=== PATIENT | male | born 1995 | race Caucasian/White ===

== ENCOUNTER 2024-04-09 23:16 | Emergency (ER) | payer SELFPAY ==
[2024-04-09 23:17] VITALS: BP 108/63; PULSE 60; RESP 95; TEMP 36.8; O2SAT 95; BMI 23.7
--- NOTE | 2024-04-09 23:28 | CTR_ITS ---
PROCEDURE INFORMATION: Exam: CT Abdomen And Pelvis Without Contrast Exam date and time: 04/09/2024 11:31 PM Age: 28 years old Clinical indication: Abdominal pain; Localized; Right lower quadrant (rlq); Prior surgery; Surgery date: 6+ months; Surgery type: Hernia mesh; Patient HX: C/O rlq pain; Additional info: Rlq abd pain TECHNIQUE: Imaging protocol: Computed tomography of the abdomen and pelvis without contrast. Radiation optimization: All CT scans at this facility use at least one of these dose optimization techniques: automated exposure control; mA and/or kV adjustment per patient size (includes targeted exams where dose is matched to clinical indication); or iterative reconstruction. COMPARISON: No relevant prior studies available. RADIATION DOSE METRICS: Total DLP (mGy-cm): 529.78 FINDINGS: Limitations: The absence of intravenous contrast lessens the sensitivity of this study for solid organ abnormalities. Liver: There is no focal abnormality within the liver. Gallbladder and bile ducts: Gallbladder is nondistended but otherwise unremarkable. There is no common bile duct dilation. Pancreas: The pancreas is normal. Spleen: The spleen is normal. Adrenal glands: The adrenal glands are normal. Kidneys and ureters: There are multiple left renal collecting system calcifications. The right kidney is normal. There is no evidence of hydronephrosis. There is no stone along the course of either ureter. Stomach and bowel: There are findings of intestinal malrotation with the entirety of the colon being to the left of the midline. Stomach is distended with fluid and food debris. This could represent recently ingested meal. Please correlate with clinical history to exclude gastric obstruction. There is no evidence for intestinal obstruction. Appendix: A normal appendix is identified. Intraperitoneal space: There is no evidence of free intraperitoneal fluid. Vasculature: The aorta is normal. The aorta is normal. Lymph nodes: There is no evidence of lymphadenopathy. There is no evidence of lymphadenopathy. Urinary bladder: Unremarkable as visualized. Reproductive: Unremarkable as visualized. Bones/joints: Unremarkable. No acute fracture. Soft tissues: There are findings of mesh hernia repair left side of the abdomen. CT/CT abdomen pelvis wo con [id number] IMPRESSION: 1. Intestinal malrotation 2. Gastric distension of uncertain significance, possibly due to recently ingested meal 3. No evidence of appendicitis. 4. Left nephrolithiasis without evidence of ureteral calculi
--- NOTE | 2024-04-09 23:29 | W.ED.ABDPA2 ---
Documented by User: ELBA Pardo 04/10/24 00:57 HPI - Abdominal Pain General: Chief Complaint: Abdominal Pain Stated Complaint: ABD PAIN Time Seen by Provider: 04/09/24 23:20 History of Present Illness: 28-year-old male patient comes in today with right lower quadrant and right abdominal pain starting at about 6:00 this evening. Patient reports that he has felt sick to his stomach since then 2. Patient does have a history of renal stones and inguinal hernia repair. Patient has also had 2 back surgeries. Patient appears nontoxic. Patient appears in mild pain. Patient was brought in by EMS and had 0.5 mg of hydromorphone and route. Review of Systems General: Reports: 10 or more systems reviewed and unremarkable except in HPI and below GI: Reports: abdominal pain Physical Exam Const: COMMON NORMALS: alert HENMT: COMMON NORMALS: normocephalic HEAD & SCALP: normocephalic Neck/C-Spine: COMMON NORMALS: full ROM Resp: COMMON NORMALS: normal respiratory effort and clear to auscultation bilaterally AUSCULTATION: clear to auscultation bilaterally Cardio: COMMON NORMALS: regular rate RATE: regular rate GI: AUSCULTATION: Yes normoactive bowel sounds PALPATION: Yes Tenderness to palpation present (GI) Details: RLQ Back/Pelvis: COMMON NORMALS: thoracic and lumbar spine normal to inspection Extremity: COMMON NORMALS: full ROM Neuro: SENSORIUM/ORIENTATION: Yes alert Skin: COMMON NORMALS: turgor normal GENERAL SKIN EXAM: turgor normal Course Vital Signs: Vital signs: Vital Signs Temperature 98.2 F 04/09/24 23:17 Pulse Rate 56 L 04/10/24 01:32 Respiratory Rate 14 04/10/24 01:32 Blood Pressure 100/57 04/10/24 01:32 Pulse Oximetry 94 04/10/24 01:32 Oxygen Delivery Me thod Room Air 04/10/24 01:32 MDM - Abdominal Pain Medical Decision Making 28-year-old male patient comes in tonight with right lower quadrant abdominal pain. Patient reports pain started about 6:00 this evening. Patient has a history of hernia repair, renal calculi and back surgery. On exam abdomen soft with tenderness in the right mid to lower abdomen. Bowel sounds are present. Vital signs are normal. Differential diagnosis includes but not limited to appendicitis, gallbladder disease, constipation, bowel obstruction, pancreatitis, gastroenteritis, enteritis, diverticulitis. CBC CMP was unremarkable. We were awaiting CT report. Reviewed patient with Dr. Mckeon who graciously assumed care of patient at the end of my shift. Lab Data 04/09/24 23:50 04/09/24 23:50 Labs/Radiology: Radiology Impressions Abdomen/Pelvis CT 04/09/24 23:28 IMPRESSION: 1. Intestinal malrotation 2. Gastric distension of uncertain significance, possibly due to recently ingested meal 3. No evidence of appendicitis. 4. Left nephrolithiasis without evidence of ureteral calculi Laboratory Results WBC 7.04 10^3/uL (3.29-11.43) 04/09/24 23:50 RBC 4.36 10^6/uL (3.85-5.65) 04/09/24 23:50 Hgb 13.20 g/dL (11.27-16.99) 04/09/24 23:50 Hct 38.4 % (37-53) 04/09/24 23:50 MCV 88.1 fl (82-101) 04/09/24 23:50 MCH 30.3 pg (27-33) 04/09/24 23:50 MCHC 34.4 g/dL (30-55) 04/09/24 23:50 RDW 12.4 % (12.1-15.1) 04/09/24 23:50 Plt Count 221 10^3/cmm (157-399) 04/09/24 23:50 MPV 9.2 fL (7.4-10.4) 04/09/24 23:50 Neut % (Auto) 51.4 % 04/09/24 23:50 Lymph % (Auto) 35.7 % 04/09/24 23:50 Payne % (Auto) 9.5 % 04/09/24 23:50 Eos % (Auto) 2.4 % 04/09/24 23:50 Baso % (Auto) 0.9 % 04/09/24 23:50 Neut # (Auto) 3.62 10^3/uL (1.8-7.7) 04/09/24 23:50 Lymph # (Auto) 2.5 10^3/uL (0.8-4.8) 04/09/24 23:50 Payne # (Auto) 0.7 10^3/uL (0.2-0.9) 04/09/24 23:50 Eos # (Auto) 0.2 10^3/uL (0.0-0.8) 04/09/24 23:50 Baso # (Auto) 0.1 10^3/uL (0.0-0.1) 04/09/24 23:50 Nucleated RBC % (auto) 0 % 04/09/24 23:50 Nucleated RBCs # 0.0 /100WBC 04/09/24 23:50 Sodium 139 mmol/L (136-145) 04/09/24 23:50 Potassium 3.7 mmol/L (3.5-5.1) 04/09/24 23:50 Chloride 105 mmol/L (98-107) 04/09/24 23:50 Carbon Dioxide 28 mmol/L (22-29) 04/09/24 23:50 Anion Gap 9.7 (5-19) 04/09/24 23:50 BUN 21 mg/dL (6-20) H 04/09/24 23:50 Creatinine 1.1 mg/dL (0.7-1.2) 04/09/24 23:50 GFR Calculation 79.1 mL/min (90-130) L 04/09/24 23:50 Glucose 111 mg/dL (65-115) 04/09/24 23:50 Calculated Osmolality 292 mOsm/kg (285-295) 04/09/24 23:50 Calcium 8.8 mg/dL (8.5-10.5) 04/09/24 23:50 Total Bilirubin 0.3 mg/dL (0.15-1.2) 04/09/24 23:50 AST 14 U/L (0-40) 04/09/24 23:50 ALT 10 U/L (0-41) 04/09/24 23:50 Alkaline Phosphatase 73 U/L (40-130) 04/09/24 23:50 Total Protein 5.8 g/dL (6.6-8.7) L 04/09/24 23:50 Albumin 3.5 g/dL (3.5-5.2) 04/09/24 23:50 Globulin 2.3 g/dL (1.3-4.6) 04/09/24 23:50 Lipase 30 U/L (13-60) 04/09/24 23:50 XR interpretation done by ED provider, pending radiology final review Discharge Plan Discharge Patient Disposition: Home Clinical Impression: Gastric distention Condition: Stable Prescriptions: New Reglan 10 mg tablet 10 mg PO Q6H 7 Days Qty: 28 0RF magnesium citrate Solution 300 ml PO DAILY PRN (Reason: constipation) Qty: 296 0RF Discharge Orders: Discharge ED (Routine); Ordered 04/10/24 Ordered By: Yang Mckeon Patient Instructions: Opioid Safety, Pain Management Activity Restrictions/Additional Instructions: Your stomach was quite distended on the imaging you had performed here. However, there is no obstruction. Medication is to increase your stomach motility, and relieve any constipation causing the distention. Medication should be taken near a bathroom. Return for fever greater than 100, vomiting liquids or medications, worsening pain despite treatment, or any other concerning symptoms. See your doctor next week. Coding Level of Care Code ED International Tax Manager for [employer]g [employer] Documented by User: Yang Mckeon DO 04/10/24 02:18 HPI - Abdominal Pain General: Chief Complaint: Abdominal Pain Stated Complaint: ABD PAIN Time Seen by Provider: 04/09/24 23:20 Course Vital Signs: Vital signs: Vital Signs Temperature 98.2 F 04/09/24 23:17 Pulse Rate 56 L 04/10/24 01:32 Respiratory Rate 14 04/10/24 01:32 Blood Pressure 100/57 04/10/24 01:32 Pulse Oximetry 94 04/10/24 01:32 Oxygen Delivery Me thod Room Air 04/10/24 01:32 MDM - Abdominal Pain Medical Decision Making 28-year-old male patient comes in tonight with right lower quadrant abdominal pain. Patient reports pain started about 6:00 this evening. Patient has a history of hernia repair, renal calculi and back surgery. On exam abdomen soft with tenderness in the right mid to lower abdomen. Bowel sounds are present. Vital signs are normal. Differential diagnosis includes but not limited to appendicitis, gallbladder disease, constipation, bowel obstruction, pancreatitis, gastroenteritis, enteritis, diverticulitis. CBC CMP was unremarkable. We were awaiting CT report. Reviewed patient with Dr. Mckeon who graciously assumed care of patient at the end of my shift. Assumed care from Mr. Heck. I agree with his history, evaluation, and treatment. CT shows congenital intestinal malrotation that is not a new finding. He has gastric distention. There is no evidence of complete obstruction. His laboratory is unremarkable. He has not vomited since he has been here. Has been resting comfortably. He will be placed on Reglan, and given a bowel prep to relieve the belly distention. Lab Data 04/09/24 23:50 04/09/24 23:50 Labs/Radiology: Radiology Impressions Abdomen/Pelvis CT 04/09/24 23:28 IMPRESSION: 1. Intestinal malrotation 2. Gastric distension of uncertain significance, possibly due to recently ingested meal 3. No evidence of appendicitis. 4. Left nephrolithiasis without evidence of ureteral calculi Laboratory Results WBC 7.04 10^3/uL (3.29-11.43) 04/09/24 23:50 RBC 4.36 10^6/uL (3.85-5.65) 04/09/24 23:50 Hgb 13.20 g/dL (11.27-16.99) 04/09/24 23:50 Hct 38.4 % (37-53) 04/09/24 23:50 MCV 88.1 fl (82-101) 04/09/24 23:50 MCH 30.3 pg (27-33) 04/09/24 23:50 MCHC 34.4 g/dL (30-55) 04/09/24 23:50 RDW 12.4 % (12.1-15.1) 04/09/24 23:50 Plt Count 221 10^3/cmm (157-399) 04/09/24 23:50 MPV 9.2 fL (7.4-10.4) 04/09/24 23:50 Neut % (Auto) 51.4 % 04/09/24 23:50 Lymph % (Auto) 35.7 % 04/09/24 23:50 Payne % (Auto) 9.5 % 04/09/24 23:50 Eos % (Auto) 2.4 % 04/09/24 23:50 Baso % (Auto) 0.9 % 04/09/24 23:50 Neut # (Auto) 3.62 10^3/uL (1.8-7.7) 04/09/24 23:50 Lymph # (Auto) 2.5 10^3/uL (0.8-4.8) 04/09/24 23:50 Payne # (Auto) 0.7 10^3/uL (0.2-0.9) 04/09/24 23:50 Eos # (Auto) 0.2 10^3/uL (0.0-0.8) 04/09/24 23:50 Baso # (Auto) 0.1 10^3/uL (0.0-0.1) 04/09/24 23:50 Nucleated RBC % (auto) 0 % 04/09/24 23:50 Nucleated RBCs # 0.0 /100WBC 04/09/24 23:50 Sodium 139 mmol/L (136-145) 04/09/24 23:50 Potassium 3.7 mmol/L (3.5-5.1) 04/09/24 23:50 Chloride 105 mmol/L (98-107) 04/09/24 23:50 Carbon Dioxide 28 mmol/L (22-29) 04/09/24 23:50 Anion Gap 9.7 (5-19) 04/09/24 23:50 BUN 21 mg/dL (6-20) H 04/09/24 23:50 Creatinine 1.1 mg/dL (0.7-1.2) 04/09/24 23:50 GFR Calculation 79.1 mL/min (90-130) L 04/09/24 23:50 Glucose 111 mg/dL (65-115) 04/09/24 23:50 Calculated Osmolality 292 mOsm/kg (285-295) 04/09/24 23:50 Calcium 8.8 mg/dL (8.5-10.5) 04/09/24 23:50 Total Bilirubin 0.3 mg/dL (0.15-1.2) 04/09/24 23:50 AST 14 U/L (0-40) 04/09/24 23:50 ALT 10 U/L (0-41) 05/12/24 23:50 Alkaline Phosphatase 73 U/L (40-130) 04/09/24 23:50 Total Protein 5.8 g/dL (6.6-8.7) L 04/09/24 23:50 Albumin 3.5 g/dL (3.5-5.2) 04/09/24 23:50 Globulin 2.3 g/dL (1.3-4.6) 04/09/24 23:50 Lipase 30 U/L (13-60) 04/09/24 23:50 Discharge Plan Discharge Patient Disposition: Home Clinical Impression: Gastric distention Condition: Stable Prescriptions: New Reglan 10 mg tablet 10 mg PO Q6H 7 Days Qty: 28 0RF magnesium citrate Solution 300 ml PO DAILY PRN (Reason: constipation) Qty: 296 0RF Discharge Orders: Discharge ED (Routine); Ordered 04/10/24 Ordered By: Yang Mckeon Patient Instructions: Opioid Safety, Pain Management Activity Restrictions/Additional Instructions: Your stomach was quite distended on the imaging you had performed here. However, there is no obstruction. Medication is to increase your stomach motility, and relieve any constipation causing the distention. Medication should be taken near a bathroom. Return for fever greater than 100, vomiting liquids or medications, worsening pain despite treatment, or any other concerning symptoms. See your doctor next week. Coding Level of Care Code ED International Tax Manager for Neeraj Tripp
[2024-04-10 00:03] LABS: Basophils # 0.1 10^3/uL (0.0-0.1); Basophils % 0.9 %; Eosinophils # 0.2 10^3/uL (0.0-0.8); Eosinophils % 2.4 %; Hematocrit 38.4 % (37-53); Lymphocytes # 2.5 10^3/uL (0.8-4.8); Lymphocytes % 35.7 %; Mean Corpuscular HGB Conc 34.4 g/dL (30-55); Mean Corpuscular Hemoglobin 30.3 pg (27-33); Mean Corpuscular Volume 88.1 fl (82-101); Mean Platelet Volume 9.2 fL (7.4-10.4); Monocytes # 0.7 10^3/uL (0.2-0.9); Monocytes % 9.5 %; Neutrophils # 3.62 10^3/uL (1.8-7.7); Neutrophils % 51.4 %; Nucleated Red Blood Cells % 0 %; Platelet Count 221 10^3/cmm (157-399); Red Blood Count 4.36 10^6/uL (3.85-5.65); Red Cell Distribution Width 12.4 % (12.1-15.1); White Blood Count 7.04 10^3/uL (3.29-11.43)
[2024-04-10 00:14] VITALS: BP 99/55; PULSE 62; RESP 15; O2SAT 93
[2024-04-10 00:22] LABS: Alanine Aminotransferase 10 U/L (0-41); Albumin Level 3.5 g/dL (3.5-5.2); Alkaline Phosphatase 73 U/L (40-130); Anion Gap 9.7 (5-19); Aspartate Amino Transferase 14 U/L (0-40); Blood Urea Nitrogen 21 mg/dL (6-20); Calcium 8.8 mg/dL (8.5-10.5); Carbon Dioxide 28 mmol/L (22-29); Chloride 105 mmol/L (98-107); Creatinine Clr Calc Pharmacy 112.9604; Globulin 2.3 g/dL (1.3-4.6); Glomerular Filtration Rate 79.1 mL/min (90-130); Glucose 111 mg/dL (65-115); Lipase 30 U/L (13-60); Osmolality Calculated 292 mOsm/kg (285-295); Potassium 3.7 mmol/L (3.5-5.1); Sodium 139 mmol/L (136-145); Total Bilirubin 0.3 mg/dL (0.15-1.2); Total Protein 5.8 g/dL (6.6-8.7)
[2024-04-10 01:32] VITALS: BP 100/57; PULSE 56; RESP 14; O2SAT 94
[2024-04-10 02:17] VITALS: BP 112/67; PULSE 60; RESP 18; O2SAT 95
== END 2024-04-10 02:19 | disposition home or self-care (01) ==
PROVIDERS: Nurse Practitioner Family; Emergency Provider Emergency Medicine
DX: K31.89 Other diseases of stomach and duodenum (principal)
CPT/HCPCS: 36415; 74176; 80053; 83690; 85025; 99284

== ENCOUNTER 2024-05-13 22:39 | Emergency (ER) | payer SELFPAY ==
[2024-05-13 22:40] VITALS: BP 106/63; PULSE 83; RESP 18; TEMP 36.6; O2SAT 97; BMI 23.7
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
[2024-05-13] MEDS: ondansetron 2 mg/ML SDV 2 mL 4 MG IVP (22:53)
[2024-05-13] MEDS: HYDROmorphone 1 mg/mL INJ 1 mL IVP ×2 (22:54→23:50)
[2024-05-13 23:20] VITALS: BP 128/81; PULSE 73; RESP 16; O2SAT 97
[2024-05-13 23:51] VITALS: BP 124/81; PULSE 74; RESP 16; O2SAT 99
[2024-05-14 00:04] VITALS: BP 127/77; PULSE 74; RESP 16; O2SAT 98
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
== END 2024-05-14 00:55 | disposition home or self-care (01) ==
PROVIDERS: Emergency Provider Emergency Medicine
DX: S73.001A Unspecified subluxation of right hip, initial encounter (principal); V80.018A Animal-rider injured by fall from or being thrown from other animal in noncollision accident, initial encounter
CPT/HCPCS: 72192; 96374; 96375; 99285; E0114; J1170; J2405

== ENCOUNTER 2025-05-04 23:04 | Emergency (ER) | payer SELFPAY ==
[2025-05-04 23:08] VITALS: BP 125/78; PULSE 80; RESP 16; TEMP 36.7; O2SAT 97; BMI 25.7
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
[2025-05-05] MEDS: ketorolac 30 mg/mL INJ IM (00:36)
[2025-05-05] MEDS: orphenadrine 30 mg/mL Inj 2 mL 60 MG IM (00:36)
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
== END 2025-05-05 01:58 | disposition home or self-care (01) ==
PROVIDERS: Emergency Provider Physician Assistant
DX: S30.0XXA Contusion of lower back and pelvis, initial encounter (principal); S60.211A Contusion of right wrist, initial encounter; S00.33XA Contusion of nose, initial encounter; M62.838 Other muscle spasm; Y04.8XXA Assault by other bodily force, initial encounter
CPT/HCPCS: 70450; 72100; 72125; 73110; 96372; 99284; J1885; J2360